=== PATIENT | male | born 1990 | race Caucasian/White ===

== ENCOUNTER 2022-03-09 10:12 | Emergency (ER) | payer SELFPAY ==
[~2022-03-09] VITALS: Ht 172.7 cm; Wt 86.2 kg
[2022-03-09 10:17] VITALS: BP 133/94
--- NOTE | 2022-03-09 10:28 | NUR ---
DR OSUNA AT BEDSIDE
--- NOTE | 2022-03-09 10:33 | NUR ---
32 Y/O MALE BIB SELF C/O RIGHT EYE PAIN AND SWELLING X2 DAYS, STATES THAT HE FEELS DISCOMFORT ON THE EYELID, NOTED SLIGHT SWELLING ON RIGHT UPPER EYELID, NO DISCHARGE NOTED, DENIES ANY MEDICATION PRIOR TO ARRIVAL PMH: DENIES
[2022-03-09] MEDS ORDERED: FLUORESCEIN OPTH STRIP 1 MG OP ONE (10:35)
[2022-03-09] MEDS ORDERED: TETRACAINE HCL/PF 0.5% OPTH 4 ML BTL OP ONE (10:35)
[2022-03-09] MEDS ORDERED: TOMOMETER 1 DEV DEV MC ONE (10:38)
--- NOTE | 2022-03-09 10:49 | NUR ---
EYE TEST BOTH 20/25 RIGHT 20/70 LEFT 20/30
[2022-03-09] MEDS ORDERED: ERYT2GEL22 TP (11:24)
[2022-03-09] MEDS ORDERED: ERYT5OIN51 OP ×2 (11:31→11:32)
--- NOTE | 2022-03-09 11:40 | NUR ---
Patient discharged with v/s stable. Written and verbal after care instructions STYE given and explained. Patient alert, oriented and verbalized understanding of instructions. Ambulatory with steady gait. All questions addressed prior to discharge. ID band removed. Patient advised to follow up with PMD. Rx of ERYTHROMYCIN given. Patient educated on indication of medication including possible reaction and side effects. Opportunity to ask questions provided and answered.
== END 2022-03-09 11:40 | disposition home or self-care (01) ==
LOC: MED 10:12
DX: H00.011 Hordeolum externum right upper eyelid (principal); H53.8 Other visual disturbances; Z79.899 Other long term (current) drug therapy
CPT/HCPCS: 99283